=== PATIENT | female | born 2000 | race Two or more races ===

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

== ENCOUNTER 2020-08-12 21:14 | Emergency (ER) | payer OTHER ==
[2020-08-12 21:23] VITALS: BP 123/74; PULSE 102; TEMP 99.6; BMI 36.0
[2020-08-12] MEDS ORDERED: ACETAMINOPHEN 325 MG TABLET (FP) PO ONE (21:50)
[2020-08-12] MEDS ORDERED: ACETAMINOPHEN 325 MG TABLET (FP) ONE (21:57)
== END 2020-08-12 23:02 | disposition home or self-care (01) ==
LOC: FER 21:14
DX: S93.422A Sprain of deltoid ligament of left ankle, initial encounter (principal)
CPT/HCPCS: 73610-TC-LT-FY; 73630-TC-LT; 99284-25

== ENCOUNTER 2024-11-10 20:47 | Emergency (ER) | payer OTHER ==
[2024-11-10 21:05] VITALS: BP 125/76; PULSE 79; RESP 18; TEMP 98.4; BMI 35.2
[2024-11-10] MEDS: ONDANSETRON 4 MG/2 ML VIAL IVPB ONE (21:21)
[2024-11-10] MEDS: ACETAMINOPHEN 1000 MG/100 ML BAG IVPB ONE (21:21)
[2024-11-10 21:47] LABS: EOSINOPHIL % 0.1 % (0.7-5.8); EOSINOPHILS # 0.01 x10^3/uL (0.04-0.36)
[2024-11-10] MEDS ORDERED: FAMOTIDINE 20 MG/50 ML IVPB 20 MG/50 ML MG IVPB ONE (21:48)
[2024-11-10] MEDS ORDERED: KETOROLAC TROMETHAMINE 15 MG/ML VIAL ONE (21:48)
[2024-11-10] MEDS ORDERED: ONDANSETRON 4 MG/2 ML VIAL ONE (21:48)
[2024-11-10 21:53] LABS: MEAN PLT VOLUME 10.3 fl (9.4-12.3); MONOCYTE # 0.50 x10^3/uL (0.24-0.86)
[2024-11-10 21:55] LABS: ABSOLUTE IMMATURE GRANULOCYTES 0.04 x10^3/uL (0.0-0.031); BASOPHILS # 0.03 x10^3/uL (0.01-0.08); IMMATURE PLATELET FRACTION # 4.10 x10^3/uL; MCHC 33.1 g/dl (32.2-35.5); MEAN CELL VOLUME 83.5 fl (79.4-94.8); MONOCYTE % 4.6 % (4.7-12.5); RDW 15.2 % (12.1-16.5)
[2024-11-10] MEDS: LACTATED RINGERS SOLUTION 1000 ML INFUS.BAG IV ONE (21:56)
[2024-11-10] MEDS: KETOROLAC TROMETHAMINE 15 MG/ML VIAL IVPUSH ONE (21:56)
[2024-11-10] MEDS: FAMOTIDINE 20 MG/50 ML IVPB 20 MG/50 ML MG IVPB ONE (21:56)
[2024-11-10] MEDS: ONDANSETRON 4 MG/2 ML VIAL IVPUSH ONE (21:57)
[2024-11-10 22:13] LABS: CO2 27.0 mmol/L (21-32); GLUCOSE,RANDOM 91.0 mg/dL (74-106)
[2024-11-10 22:16] LABS: CREATININE 0.7 mg/dL (0.55-1.3); SGOT/AST 40.0 U/L (15-37); SGPT/ALT 53.0 U/L (13-61)
[2024-11-10 22:17] LABS: TOT PROT 8.2 g/dl (6.4-8.2)
[2024-11-10 22:19] LABS: ALK PHOS 50.0 U/L (45-117)
[2024-11-10] MEDS ORDERED: MAG HYDROX/AL HYDROX/SIMETH 30 ML UNIT-DOSE CUP ONE (23:00)
[2024-11-10] MEDS: MAG HYDROX/AL HYDROX/SIMETH 30 ML UNIT-DOSE CUP PO ONE (23:04)
[2024-11-10 23:06] LABS: HIV INTERPRETATION NEGATIVE (NEGATIVE)
[2024-11-10 23:07] LABS: HCV DIAGNOSTIC IN-HOUSE W/RFLX NON-REACTIVE (NONREACTIVE)
== END 2024-11-10 23:14 | disposition home or self-care (01) ==
LOC: JER 20:47
PROC: 3E033GC Introduction of Other Therapeutic Substance into Peripheral Vein, Percutaneous Approach (ICD-10-PCS; principal; 2024-11-10)
PROC: 3E0333Z Introduction of Anti-inflammatory into Peripheral Vein, Percutaneous Approach (ICD-10-PCS; 2024-11-10)
PROC: 3E033GC Introduction of Other Therapeutic Substance into Peripheral Vein, Percutaneous Approach (ICD-10-PCS; 2024-11-10)
DX: R11.2 Nausea with vomiting, unspecified (principal); R10.84 Generalized abdominal pain; T50.995A Adverse effect of other drugs, medicaments and biological substances, initial encounter
CPT/HCPCS: 36415; 80053; 83605; 83690; 84703; 85025; 86803; 87389; 99284-25